=== PATIENT | female | born 1985 | race Caucasian/White ===

== ENCOUNTER 2024-11-23 09:02 | Outpatient (AMB) | payer BC, SELFPAY ==
[2024-11-23 09:32] VITALS: BP 121/76; PULSE 78; RESP 18; TEMP 36.1; O2SAT 98; BMI 25.4
--- NOTE | 2024-11-23 09:32 | GYNCLNT_ITS ---
Vital Signs 11/23/24 09:32 Height 1.65 m Height Method Stated Weight 69.456 kg Weight Measurement Method Standing Scale BMI 25.4 BP 121/76 Blood Pressure Source Automatic Cuff Blood Pressure Location Left Upper Arm Position Sitting Respiration 18 Pulse 78 Pulse Source Monitor Temp 97 F Temp Source Oral Pulse Oximetry (%) 98 Oxygen Delivery Method Room Air Allergies/Home Meds Allergies & Medications Allergies gluten Allergy (Intermediate, Verified 11/24/24 12:59) Diarrhea Penicillins Allergy (Intermediate, Verified 11/24/24 12:59) Hives Medication Reconciliation No Known Home Medications 11/23/24 [History Confirmed 11/23/24] Intake Visit Data Collection New Patient or Established: New Patient (never been to [facility]) Reason for Visit:: ANNUAL EXAM Seen by Clinical Staff ONLY (RN/MA): No Music Specialist Required: No Do You Feel Safe at Home: Yes Authorities Contacted: N/A PCP or OBGYN visit in last 3 months: Yes Hx Now: No Are you currently on any form of Control: No Last menstrual period: 11/14/24 Pain Present Currently: No Pain Scale Used: Goode-[place]/Numerical Pain scale:: 0 Smoking Status Smoking Status: Never smoker 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 Probably will not attempt another . Declines control. 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 1. Little interest or pleasure in doing things: not at all 2. Feeling down, depressed, or hopeless: not at all Total score: 0 PHQ-9 3. Trouble falling or staying asleep, or sleeping too much: Not at all 4. Feeling tired or having little energy: Not at all 5. Poor appetite or overeating: Not at all 6. Feeling bad about yourself - or that you are a failure or have let yourself or your family down: Not at all 7. Trouble concentrating on things, such as reading the newspaper or watching television: Not at all 8. Moving or speaking so slowly that other people could have noticed? - Or the opposite - being so fidgety or restless that you have been moving around a lot more than usual: not at all 9. Thoughts that you would be better off or of hurting yourself in some way: Not at all Total score: 0 If you checked off any problems, how difficult have these problems made it for you to do your work, take care of things at home, or get along with other people?: not difficult at all Source: Developed by Drs. Patrick Gracia, Annita Velasco, Jose Alfaro and colleagues, with an educational nadir from [employer]. Depression screen completed yes Social History Living Situation History Marital Status: Lives With: Family Housing: House Housing Other:: Has a 6 y/o daughter and 12 y/o stepson. 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 She has not had a pap performed since her daughter was born in 2019. They are debating whether or not to try for another one. The patient is worried the new baby will have a chromosomal or physical deformity. She thinks she might be too old. She states she really would only have another child because her daughter wants a sister. 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 Review of Systems Review of Systems Narrative Review of Systems: No hot flashes or night sweats. Cycles are regular and monthly. The patients states her only complaint is bleeding after intercourse. No dymenorrhea. No menorrhagia, Exam Narrative Physical exam: Pelvic exam: Prominent ectropion with bleeding noted with pap. Uterus midlying. No adnexal masses or tenderness. Good pelvic support with 1+ cytocele noted General Limitations: no limitations General Appearance: alert, in no apparent distress, comfortable, cooperative, healthy appearing, well developed and well groomed Neck Neck exam: Present normal inspection, full ROM and trachea midline Chest Chest inspection: Present normal inspection and symmetric chest wall rise Exp Chest Breast: bilateral: other (Normal breast exam bilaterally) Resp Respiratory exam: Present normal lung sounds bilaterally Card Cardiovascular exam: Present regular rate, normal rhythm and normal heart sounds Abdominal Abdominal exam: Present soft and normal bowel sounds Extremities Extremities exam: Present normal inspection and full ROM Psych Psychiatric exam: Present normal affect and normal mood Skin Skin exam: Present warm, dry, intact and normal color Office Procedures OB Clinic LOC & Office Proc's Nursing/Assessment Patient Status: Initial/New Patient OB Clinic Nursing Assessment: Medication Reconciliation, Update PMH in EMR and Vital Signs OB Clinic Coordination of Care: Complex Care and Chronic Disease 1-5, Education Complex Pt/Fam, Consent,records obtained, informed consent, Lab and Imaging orders and Staff clarify orders Miscellaneous Interventions: Pelvic/Pap Smear Set up New Patient Charge New Patient Point Assignment: 1124 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 Pt declines a mammogram until age 42. We discussed control and she declines. I told her about her prominent ectropion likely causing VB after intercourse. I offered to treat her cx with silver nitrite and she declined. I offered her cryotherapy or an ectocervical LEEP and she declined. She will keep an eye on this for now. We will call her with the results of her pap. VP PUBLISHER DEVELOPMENT: Papsmear Pap Smear Procedure [place] in room during procedure?: No Pre-op diagnosis general: Annual wellness exam Post-op diagnosis procedure note: Same Procedure Notes:: Pap with co testing to HPV performed
--- NOTE | 2024-11-25 09:13 | AMB.GYNCLNOT ---
Vital Signs 11/23/24 09:32 Height 1.65 m Height Method Stated Weight 69.456 kg Weight Measurement Method Standing Scale BMI 25.4 BP 121/76 Blood Pressure Source Automatic Cuff Blood Pressure Location Left Upper Arm Position Sitting Respiration 18 Pulse 78 Pulse Source Monitor Temp 97 F Temp Source Oral Pulse Oximetry (%) 98 Oxygen Delivery Method Room Air Allergies/Home Meds Allergies & Medications Allergies gluten Allergy (Intermediate, Verified 11/24/24 12:59) Diarrhea Penicillins Allergy (Intermediate, Verified 11/24/24 12:59) Hives Medication Reconciliation No Known Home Medications 11/23/24 [History Confirmed 11/23/24] Intake Visit Data Collection Do You Feel Safe at Home: Yes Smoking Status Smoking Status: Never smoker Questionnaires Covid-19 Vaccine Questionnaire Has patient been vacinated for Covid-19 Have you been vacinated for Covid-19: Yes PHQ-9 PHQ-2 Over the last 2 weeks, how often have you been bothered by any of the following problems? 1. Little interest or pleasure in doing things: not at all PHQ-9 3. Trouble falling or staying asleep, or sleeping too much: Not at all 4. Feeling tired or having little energy: Not at all 5. Poor appetite or overeating: Not at all 6. Feeling bad about yourself - or that you are a failure or have let yourself or your family down: Not at all 7. Trouble concentrating on things, such as reading the newspaper or watching television: Not at all 8. Moving or speaking so slowly that other people could have noticed? - Or the opposite - being so fidgety or restless that you have been moving around a lot more than usual: not at all Total score: 0 If you checked off any problems, how difficult have these problems made it for you to do your work, take care of things at home, or get along with other people?: not difficult at all Source: Developed by Drs. Patrick Gracia, Annita Velasco, Jose Alfaro and colleagues, with an educational nadir from [employer]. Social History Living Situation History Marital Status: Lives With: Family Housing: House Housing Other:: Has a 6 y/o daughter and 12 y/o stepson. 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 [place] Tobacco History Smoking Status: Never smoker Second Hand Smoke Exposure: No Alcohol History Alcohol Intake: Never Domestic Abuse History Do You Feel Safe at Home: Yes Exam General Limitations: no limitations General Appearance: alert, in no apparent distress, comfortable, cooperative, healthy appearing, well developed and well groomed Head Head exam: atraumatic, normocephalic and normal inspection Eye Eye exam: Present normal appearance, PERRL and EOMI ENT ENT exam: Present normal exam, normal oropharynx and mucous membranes moist Neck Neck exam: Present normal inspection, full ROM and trachea midline Chest Chest inspection: Present normal inspection and symmetric chest wall rise Resp Respiratory exam: Present normal lung sounds bilaterally Card Cardiovascular exam: Present regular rate, normal rhythm and normal heart sounds Abdominal Abdominal exam: Present soft and normal bowel sounds Extremities Extremities exam: Present normal inspection and full ROM Back Back exam: Present normal inspection and full ROM Neuro Neurological exam: Present alert, oriented X3 and CN II-XII intact Psych Psychiatric exam: Present normal affect and normal mood Skin Skin exam: Present warm, dry, intact and normal color Office Procedures OB Clinic LOC & Office Proc's Nursing/Assessment Patient Status: Initial/New Patient OB Clinic Nursing Assessment: Medication Reconciliation, Update PMH in EMR and Vital Signs OB Clinic Coordination of Care: Complex Care and Chronic Disease 1-5, Education Complex Pt/Fam, Consent,records obtained, informed consent, Lab and Imaging orders and Staff clarify orders Miscellaneous Interventions: Pelvic/Pap Smear Set up New Patient Charge New Patient Point Assignment: 1124 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
== END 2024-11-23 10:19 | disposition home or self-care (01) ==
LOC: HODSOBC 09:02
PROVIDERS: Supervising Provider Obstetrics & Gynecology; Visit Provider Obstetrics & Gynecology
DX: Z01.411 Encounter for gynecological examination (general) (routine) with abnormal findings (principal); Z11.51 Encounter for screening for human papillomavirus (HPV); N86 Erosion and ectropion of cervix uteri; N81.10 Cystocele, unspecified
CPT/HCPCS: 99204; G0463